=== PATIENT | male | born 1985 | race Caucasian/White ===

== ENCOUNTER 2020-11-07 08:35 | Emergency (ER) | payer BC ==
[2020-11-07] MEDS ORDERED: Acetaminophen/HYDROcodone 325-5 MG Tab PO ONE (09:17)
[2020-11-07] MEDS ORDERED: Iopamidol 755 MG/ML 500 ML Multipack Bottle IVPUSH ONE (10:21)
--- NOTE | 2020-11-07 10:47 | CT ---
INDICATION: Headache, neck pain. TECHNIQUE: After standard noncontrast head CT, high resolution axial CT images acquired through the head and neck following rapid intravenous administration of iodinated contrast. Multiplanar MIPS of cranial and cervical vasculature performed. COMPARISON: None. FINDINGS: Noncontrast head CT: There is no intracranial hemorrhage or fluid collection. The thakur-white matter differentiation is maintained. The ventricles are of normal morphology. The basal cisterns are clear. CTA head: There is normal filling of the intracranial vasculature; i.e. there is no large vessel occlusion or intracranial stenosis. There is no cerebral aneurysm or evidence for vascular malformation. CTA neck: Both carotid and vertebral arteries have a normal course and caliber. There is no stenosis or dissection. The soft tissues of the neck are within normal limits. The cervical spine is in normal alignment. The lung apices are clear. IMPRESSION: Unremarkable CT head, CTA head and neck. Ra Shin MD Neurointerventional Radiologist [facility] Please note that all CT scans at this facility use dose modulation, iterative reconstruction, and/or weight-based dosing when appropriate to reduce radiation dose to as low as reasonably achievable. Dictated by Ra Shin MD @ 11/07/2020 10:47:[address] Ra Shin @ Nov 07 2020 10:47AM
[2020-11-07] MEDS ORDERED: Ketorolac 15 MG/ML SDV IM ONE (10:49)
[2020-11-07] MEDS ORDERED: diphenhydrAMINE 50 MG/ML SDV IVPUSH ONE (10:50)
[2020-11-07] MEDS ORDERED: Prochlorperazine 5 MG in Sodium Chloride 0.9% 50 ML IV ONE (10:50)
[2020-11-07] MEDS ORDERED: Dexamethasone 10 MG/ML SDV IVPUSH ONE (10:50)
[2020-11-07] MEDS ORDERED: Dextrose 5%-Lactated Ringers 1,000 ML IV SCH (11:00)
[2020-11-07] MEDS ORDERED: Prochlorperazine 10 MG/2 ML SDV IVPUSH ONE (11:30)
--- NOTE | 2020-11-07 12:59 | EDM.PDOC ---
ED HPI GENERAL MEDICAL PROBLEM - General Chief Complaint: Headache Stated Complaint: NECK POPED AND NOW HURTS Time Seen by Provider: 11/07/20 08:46 - History of Present Illness INITIAL COMMENTS - FREE TEXT/NARRATIVE: CHIEF COMPLAINT(S): "I popped my neck and now it hurts." HISTORY OF PRESENT ILLNESS: This is a 35-year-old man without any reported past medical history of insomnia who comes to the emergency department with a chief complaint of "I popped my neck and now it hurts." The patient states that he has been experiencing a headache for the past 7 days. He describes it as pain throughout his head associated with blurry vision, light sensitivity. He cannot describe if the headache was maximal at onset, he did not describe it as the worst headache of his life, and he could not describe the pain today. However ruth salazar does rate his pain as 10 out of 10. He states that his headache had improved up until this morning when he popped his neck and it seemed to worsen. He states that he is experiencing shooting pains through his head and neck. He denies any trouble walking, loss of vision, double vision. He denies any history of headaches but has a family history of migraines. He denies any history of aneurysm or family history of aneurysm. He denies any IV drug use, recent travel, fever, chills, neck stiffness. The patient states that he tried Excedrin without any relief. Exacerbating factor of the headache was popping his neck. REVIEW OF SYSTEMS: Constitutional: Denies fever, chills. Eyes: Denies eye pain Ears, Nose, Mouth, & Throat: Denies earache Cardiovascular: Denies chest pain Respiratory: Denies shortness of breath Gastrointestinal: Denies Nausea, vomiting, diarrhea, hematochezia. Genitourinary: Denies hematuria Skin:Denies a rash MSK: Positive for shooting pain down neck. Denies joint pain, neck stiffness Neurological: Positive for headache, light sensitivity, blurred vision. Denies numbness, tingling, weakness, trouble walking, speaking, swallowing Psychiatric: Denies depression PAST MEDICAL HISTORY: As per history of present illness and as reviewed below otherwise noncontributory. SURGICAL HISTORY: As per history of present illness and as reviewed below otherwise noncontributory. SOCIAL HISTORY: As per history of present illness and as reviewed below otherwise noncontributory. FAMILY HISTORY: As per history of present illness and as reviewed below otherwise noncontributory. EXAMINATION OF ORGAN SYSTEMS/BODY AREAS: Constitutional: Blood pressure is 156/84, heart rate 86, respiratory rate 18 with an oxygen saturation of 98% on room air. Temperature 36.3 General: Young man who is sitting in a dark room in no acute distress Psychiatric: Appropriate mood and affect. Eyes: No scleral icterus or conjunctival erythema pupils were 3 mm and reactive bilaterally. Extraocular movements are intact. No vertical or horizontal nystagmus. ENMT: Moist mucous membranes. No pharyngeal erythema tongue protrudes midline cardiovascular: Regular, rate, and rhythm. No gallops, murmurs, or rubs. Bilateral upper extremity pulses symmetric and intact. No peripheral edema. No JVD. No carotid bruits could be heard. Respiratory: Lungs clear to auscultation bilaterally. No wheezes, rales, or rhonchi. Gastrointestinal: Soft, non-tender, non-distended. Normoactive bowel sounds Genitourinary: No suprapubic tenderness Musculoskeletal: Normal range of motion. Skin: No lesions or abrasions. Neurological: AOx4. CN grossly intact. Strength 5/5 in bilateral upper and lower extremity. Sensation is intact bilaterally in upper and lower extremity. Gait appears normal. Negative meningeal signs MEDICAL DECISION MAKING AND COURSE IN THE ED WITH INTERPRETATION/REVIEW OF DIAGNOSTIC STUDIES: This is a 35-year-old man without any significant past medical history who comes to the emergency department with 7 days of worsening headache that was exacerbated today after popping his neck who is mildly hypertensive but is neurologically intact. At this time it is uncertain as to the degree of this headache as the patient was unable to describe if it was maximal at onset therefore subarachnoid hemorrhage is on the differential. Given that is outside of the 6-hour window. I did discuss with him that we could obtain a CT head and then obtain a lumbar puncture if this was negative. He elected not to have the lumbar puncture therefore given that we will need to obtain CTA of the head and neck to evaluate for dissection given the exacerbation after popping his neck we will evaluate with CT head, CTA of the head and neck for any aneurysmal bleeding or other abnormality. For now we will treat the patient with [place]. Patient does not have any meningeal signs. The patient is not febrile. He does not have any midline spinal tenderness. The radiological images were viewed by myself along with reading the report from the radiologist. CT head without contrast does not reveal any acute intracranial abnormality. CTA of the head and neck does not reveal any evidence of large vessel occlusion, intracranial stenosis, cerebral aneurysm, vascular malformation or dissection. After imaging I did discuss the results with the patient. At this time I did discuss with him that I would like to trial a migraine cocktail. He was amenable to this plan. After period of observation the patient reported improvement in his pain. At this time I did discuss with him strict return precautions given that we did not do the lumbar puncture and to continue using Tylenol and Motrin or Excedrin at home for his migraine. He is to return for any new or worsening symptoms. He was amenable discharge at this time and had no further questions DISPOSITION: The patient was discharged home in stable condition. The patient will follow up with primary care physician in 3 to 5 days CONDITION: Fair PROCEDURES: None FINAL IMPRESSION(S)/DIAGNOSES: 1. Acute headache Rahul Matias M.D. headache Pain Score (Numeric/FACES): 10 - Related Data Allergies Allergy/AdvReac Type Severity Reaction Status Date / Time Anesthesia Allergy Other Uncoded 11/07/20 08:49 Home Meds: Home Meds Aspirin/Acetaminophen/Caffeine [Excedrin Migraine Caplet] 1 tab PO ASDIRECTED 11/07/20 [History] Past Medical History HEENT History: Reports: None Cardiovascular History: Reports: None Respiratory History: Reports: None Gastrointestinal History: Reports: GERD Genitourinary History: Reports: None Musculoskeletal History: Reports: None Neurological History: Reports: None Psychiatric History: Reports: Other (See Below) Other Psychiatric History: Insomnia Endocrine/Metabolic History: Reports: None Hematologic History: Reports: None Immunologic History: Reports: None Oncologic (Cancer) History: Reports: None Dermatologic History: Reports: None - Infectious Disease History Infectious Disease History: Reports: Chicken Pox, Shingles - Past Surgical History Head Surgeries/Procedures: Reports: None HEENT Surgical History: Reports: None Cardiovascular Surgical History: Reports: None Respiratory Surgical History: Reports: None GI Surgical History: Reports: None Male Surgical History: Reports: None Endocrine Surgical History: Reports: None Neurological Surgical History: Reports: None Musculoskeletal Surgical History: Reports: None Oncologic Surgical History: Reports: None Dermatological Surgical History: Reports: None Social & Family History - Family History Family Medical History: No Pertinent Family History - Tobacco Use Tobacco Use Status *Q: Never Tobacco User Second Hand Smoke Exposure: No - Caffeine Use Caffeine Use: Reports: None - Recreational Drug Use Recreational Drug Use: No ED ROS GENERAL - Review of Systems Review Of Systems: See Below ED EXAM, GENERAL - Physical Exam Exam: See Below Course - Vital Signs Last Recorded V/S: Last Vital Signs Temp 36.3 C 11/07/20 08:46 Pulse 74 11/07/20 13:13 Resp 17 11/07/20 13:13 BP 121/83 11/07/20 13:13 Pulse Ox 95 11/07/20 13:13 - Orders/Labs/Meds Meds: Medications Discontinued Medications Generic Name Dose Route Start Last Admin Trade Name Jaylene PRN Reason Stop Dose Admin Hydrocodone Bitart/Acetaminophen 1 tab 11/07/20 09:17 11/07/20 09:32 Acetaminophen/Hydrocodone 325-5 Mg Tab PO 11/07/20 09:18 1 tab ONETIME ONE Administration Dexamethasone 10 mg 11/07/20 10:50 11/07/20 11:39 Dexamethasone 10 Mg/Ml Sdv IVPUSH 11/07/20 10:51 10 mg ONETIME ONE Administration Diphenhydramine HCl 50 mg 11/07/20 10:50 11/07/20 11:43 Diphenhydramine 50 Mg/Ml Sdv IVPUSH 11/07/20 10:51 50 mg ONETIME ONE Administration Dextrose/Lactated Ringer's 1,000 mls @ 999 mls/hr 11/07/20 11:00 11/07/20 11:31 Dextrose 5%-Lactated Ringers IV 999 mls/hr ASDIRECTED JACINTO Administration Iopamidol 100 ml 11/07/20 10:21 11/07/20 10:22 Iopamidol 755 Mg/Ml 500 Ml Multipack Bottle IVPUSH 11/07/20 10:22 100 ml ONETIME ONE Administration Ketorolac Tromethamine 15 mg 11/07/20 10:49 11/07/20 11:36 Ketorolac 15 Mg/Ml Sdv IM 11/07/20 10:50 15 mg ONETIME ONE Administration Prochlorperazine Edisylate 5 mg 11/07/20 11:30 11/07/20 11:32 Prochlorperazine 10 Mg/2 Ml Sdv IVPUSH 11/07/20 11:31 5 mg ONETIME ONE Administration Departure - Departure Time of Disposition: 12:59 Disposition: Home, Self-Care 01 Condition: Fair Clinical Impression: Migraine - Discharge Information *PRESCRIPTION DRUG MONITORING PROGRAM REVIEWED*: No *COPY OF PRESCRIPTION DRUG MONITORING REPORT IN PATIENT LATRICE: No Instructions: Migraine Headache, [id number] Referrals: PCP,Not In Area [Primary Care Provider] - Forms: ED Department Discharge Additional Instructions: You were evaluated today on an emergent basis. At this time your imaging did not reveal any abnormality. We did treat you for a migraine and your pain did improve. I do recommend that you continue to use Excedrin scheduled and start alternating with Tylenol 500 to 1000 mg every 6 hours. If the Excedrin does not work I would like you to use ibuprofen instead 400 to 600 mg every 6 hours. I recommend that you rest for the next day and keep hydrated. If you have any worsening symptoms such as worsening headache, weakness, vomiting I would like you to return to the emergency department. Otherwise please follow-up with your primary care physician in [place]. [facility] [address] [place] [address] [place] [address] The patient is informed of any results of their evaluation and diagnostic workup and all questions are answered. They are given discharge instructions and return precautions. The patient is stable for discharge. The patient states they understand and agree with the plan and that they will return if their symptoms get worse or if they have any new concerns. The following information is given to patients seen in the emergency department who are being discharged to home. This information is to outline your options for follow-up care. We provide all patients seen in our emergency department with a follow-up referral. The need for follow-up, as well as the timing and circumstances, are variable depending upon the specifics of your emergency department visit. If you don't have a primary care physician on staff, we will provide you with a referral. We always advise you to contact your personal physician following an emergency department visit to inform them of the circumstance of the visit and for follow-up with them and/or the need for any referrals to a consulting specialist. The emergency department will also refer you to a specialist when appropriate. This referral assures that you have the opportunity for follow-up care with a specialist. All of these measure are taken in an effort to provide you with optimal care, which includes your follow-up. Under all circumstances we always encourage you to contact your private physician who remains a resource for coordinating your care. When calling for follow-up care, please make the office aware that this follow-up is from your recent emergency room visit. If for any reason you are refused follow-up, please contact the [facility] Emergency Department at and asked to speak to the emergency department charge nurse. Sepsis Event Note (ED) - Evaluation Sepsis Screening Result: No Definite Risk
== END 2020-11-07 13:14 | disposition home or self-care (01) ==
LOC: MW.ED 08:35
DX: G43.909 Migraine, unspecified, not intractable, without status migrainosus (principal); M54.2 Cervicalgia; Z88.4 Allergy status to anesthetic agent; Z79.82 Long term (current) use of aspirin
CPT/HCPCS: 70450; 70496; 70498; 96372; 96374; 96375; 99284; A9270; J0780; J1100; J1200; J1885; J7121; Q9967